=== PATIENT | female | born 1960 | race Caucasian/White ===

== ENCOUNTER 2017-08-07 06:54 | Day surgery (SDC) | payer OTHER, SELFPAY ==
[2017-08-07 07:20] VITALS: BP 112/81; PULSE 74; RESP 18; TEMP 36.7; O2SAT 98; BMI 25.8
[2017-08-07 08:37] VITALS: BP 104/64; BP 112/81; PULSE 69; RESP 19; TEMP 36.2; O2SAT 100
[2017-08-07 08:40] VITALS: BP 112/81; BP 98/67; PULSE 67; RESP 16; O2SAT 99
--- NOTE | 2017-08-07 08:40 | HP.PCM_ITS ---
Problem List (1) Encounter for screening for malignant neoplasm of colon Status: Acute History of Present Illness Date of Admission: 08/07/17 The patient is a 57 year old F who presents for screening colonoscopy. Past Medical History Allergies acetaminophen [From Percocet] Allergy (Verified 08/02/17 15:50) Other oxycodone [From Percocet] Allergy (Verified 08/02/17 15:50) Other MENTAL STATUS CHANGE shellfish derived Allergy (Verified 08/02/17 15:50) Other adhesive tape Adverse Reaction (Verified 08/02/17 15:50) Rash aspirin Adverse Reaction (Verified 08/02/17 15:50) Nausea/Vom/Diarrhea meloxicam Adverse Reaction (Verified 08/02/17 15:50) Itching Home Medications: Ambulatory Orders Medication Instructions Recorded Ranitidine [Zantac] 150 mg PO BID PRN 05/17/17 Albuterol Inhaler [Ventolin Hfa 1 - 2 puff INHALATION Q4H PRN PRN 08/02/17 (SP)] Ascorbic Acid [Vitamin C] 1,000 mg PO DAILY@0800 08/02/17 Cholecalciferol (Vitamin D3) 4,000 unit PO DAILY 08/02/17 [Vitamin D3] Multivitamin [Multiple Vitamins] 1 each PO DAILY 08/02/17 Surgical History: cholecystectomy Smoking Status: Never smoker - *Family History Maternal History Items: No pertinent history Review of Systems HEENT: Reports: - - Patient had an echo in 2016 with a Holter monitor. She has had a history of tachycardia Respiratory: Reports: - - Patient has a history of asthma which is exercise- induced VTE Information - Inpt Only VTE Present on Admission: No VTE Mechan Device Prophylaxis: None VTE Pharm Prophylaxis ordered?: No Reason prophylaxis not ordered:: Treatment Not Indicated Patient Problems: Active and Suspected Problems (Last Reviewed 05/24/17 @ 07:39 by Justine Chavez) Encounter for screening for malignant neoplasm of colon (Acute) - Physical Exam HEENT: Atraumatic, PERRLA, EOMI, Normocephalic Neck: Supple, No JVD Lungs: Clear to auscultation Cardiovascular: Regular rate, Regular Rhythm, No murmurs Abdomen: Bowel Sounds Present, Soft, Non Tender, Non-Distended Vital Signs Temp Pulse Resp BP Pulse Ox 98.1 F 74 18 112/81 H 98 08/07/17 07:20 08/07/17 07:20 08/07/17 07:20 08/07/17 07:20 08/07/17 07:20 Oxygen Delivery Method Room Air Weight: 160 lb 0.889 oz Body Mass Index (BMI) 25.8 Assessment/Plan Active and Suspected Problems (Last Reviewed 05/24/17 @ 07:39 by Justine Chavez) Encounter for screening for malignant neoplasm of colon (Acute) My plan is to perform a colonoscopy on the patient.
--- NOTE | 2017-08-07 08:40 | PCM.OPRPT ---
Problem List (1) Encounter for screening for malignant neoplasm of colon Status: Acute Report of Operation Date of Procedure: 08/07/17 Pre-Operative Diagnosis: Z12.11 screening colonoscopy Post-Operative Diagnosis: Same Surgery/Procedure Performed:: [id number] colonoscopy Type of Anesthesia:: MAC Anesthesiologist: Truman Goldsmith Description of Procedure: Patient was brought into the endoscopy suite placed in the left lateral decubitus position. She was given graded anesthesia. Scope was inserted into the rectum and directed through the sigmoid colon, descending colon, transverse colon, ascending colon, to the cecum. Operative findings: 1. Cecum: Normal appearance no mass lesions normal ileocecal valve. 2. Ascending colon: Normal appearance no mass lesions. 3. Transverse colon: Normal appearance no mass lesions. 4. Descending colon: Normal appearance no mass lesions. 5. Sigmoid colon: Normal appearance no mass lesions. 6. Rectum: Normal appearance no mass lesions retroflexion did reveal a few internal hemorrhoids which were not actively bleeding. The scope was withdrawn digital rectal exam was performed showing no masses within her anus. The mucosa of the colon was entirely normal there was no abnormalities identified there was no diverticular disease identified. Patient will need another colonoscopy in 10 years. - Admit VTE Documentation VTE Present on Admission: No VTE Mechan Device Prophylaxis: None VTE Pharm Prophylaxis ordered?: No Reason prophylaxis not ordered:: Treatment Not Indicated
[2017-08-07 08:45] VITALS: BP 110/96; BP 112/81; PULSE 75; RESP 16; O2SAT 100
[2017-08-07 08:52] VITALS: BP 107/77; BP 112/81; PULSE 74; RESP 16; O2SAT 97
[2017-08-07 09:40] VITALS: BP 112/81
== END 2017-08-07 09:41 | disposition home or self-care (01) ==
LOC: EN 06:54 → AC 06:56
PROVIDERS: Family Provider Family Medicine; PCP Family Medicine; Visit Provider Surgery
PROC: 0DJD8ZZ Inspection of Lower Intestinal Tract, Via Natural or Artificial Opening Endoscopic (ICD-10-PCS; CPT 45378; principal; 2017-08-07 07:55)
DX: Z12.11 Encounter for screening for malignant neoplasm of colon (principal); K64.8 Other hemorrhoids; J45.990 Exercise induced bronchospasm; Z79.899 Other long term (current) drug therapy; Z78.0 Asymptomatic menopausal state; Z90.49 Acquired absence of other specified parts of digestive tract; Z80.0 Family history of malignant neoplasm of digestive organs
CPT/HCPCS: 45378; J7120

== ENCOUNTER → 2017-10-07 12:12 | Outpatient (CLI) | payer OTHER, SELFPAY ==
--- NOTE | 2017-10-07 12:15 | US_ITS ---
STUDY: ULTRASOUND BREAST - LEFT REASON FOR EXAM: Female, 57 years old. Palpable lump left breast. TECHNIQUE: Axial and longitudinal images of the LEFT breast were performed with a high resolution ultrasound transducer. COMPARISON: None. FINDINGS: LEFT Breast: The upper half of the left breast was examined by ultrasound. There is homogeneous fibroglandular tissue. No solid or cystic mass lesion is seen. US/Breast Limited Unilateral IMPRESSION: Unremarkable examination of the upper half of the left breast. ASSESSMENT CATEGORY: BIRADS Category 1: Negative. A letter regarding these results will be sent to the patient by the facility within 30 days. Electronically Signed: Bernard Narayan MD at 14:09 EDT Tel [phone], Service support ,
== END ==
PROVIDERS: Family Provider Family Medicine; PCP Family Medicine; Visit Provider Surgery
DX: N63.20 Unspecified lump in the left breast, unspecified quadrant (principal)
CPT/HCPCS: 76642